=== PATIENT | male | born 1955 | race Caucasian/White ===

== ENCOUNTER → 2016-05-14 | Outpatient (CLI) | payer BC ==
[~2016-05-14] MED LIST: CITA20TA7 PO; DILT120C53 PO; DOXA4TAB2 PO; FISH1CAP15 PO; MAGN250T13 PO; MULT-974 PO; POTA8CAP9 PO
--- NOTE | 2016-05-17 08:22 | ECHOCARDIOGRAPHY REPORT ---
PROCEDURE PHYSICIAN: JUDY GALEANO DATE OF PROCEDURE: 05/14/2016 TWO DIMENSIONAL ECHOCARDIOGRAM REPORT PRIMARY PHYSICIAN: Dr. Moran OTHER PHYSICIAN: REFERRING PHYSICIAN: ORDERING PHYSICIAN: Dr. Galeano INDICATION FOR THE PROCEDURE: 1. Palpitations. 2. Wide complex tachycardia. 3. Hypertension. MEASUREMENTS DERIVED VALUES LV DIAMETER (LAX) NORMALS NORMALS Diastolic 4 (3.6-5.2) Eject. Fract. (60%+/-6%) Systolic (2.3-3.9) Diastolic Vol. % Shortening (0.22-0.42) Systolic Vol. Aortic Root 3 IVS THICKNESS Diastolic 0.9 (0.6-1.1) LVPW THICKNESS Diastolic 1 (0.6-1.1) LA DIAMETER Systolic 3.5 (2.1-3.7) DESCRIPTION: Two-dimensional echocardiography shows normal global left ventricular systolic function with normal regional wall motion. Aortic, mitral and tricuspid valve leaflets show good leaflet excursion. There is no significant pericardial effusion. Doppler imaging did not indicate significant valvular regurgitation or stenosis. Pulmonary artery systolic pressure could not be reliably estimated on this study. Inferior vena cava appears moderately dilated but does exhibit inspiratory collapse. There is no evidence of significant intracardiac shunt on this transthoracic echocardiographic study. CONCLUSIONS: 1. Normal global left ventricular systolic function with an ejection fraction of approximately 60%. 2. No evidence of significant valvular regurgitation or stenosis on this study. 3. Chamber sizes appear to be within normal limits. Job ID: [id number] Dictated Date: 05/16/2016 13:38:27 Batch Mixer Operator Date: 05/17/2016 08:17:19 / [email or web address]
== END ==
LOC: CARD 15:06
PROVIDERS: ATTEND Internal Medicine Cardiovascular Disease
DX: I47.2 Ventricular tachycardia (principal); N40.0 Benign prostatic hyperplasia without lower urinary tract symptoms; I10 Essential (primary) hypertension; Z72.0 Tobacco use
CPT/HCPCS: 93306

== ENCOUNTER 2016-05-18 09:07 | Day surgery (SDC) | payer BC ==
[2016-05-18] VITALS (9 sets, daily range): BP systolic 102–143; BP diastolic 64–88
[~2016-05-18] VITALS: Ht 177.8 cm; Wt 79.8 kg
[2016-05-18] MEDS ORDERED: HEParin (CATH LAB) 2,000 ML IV ONE (09:31)
[2016-05-18] MEDS ORDERED: NS IV 1000 ML 1,000 ML ONE (09:31)
[2016-05-18] MEDS ORDERED: LIDOCAINE 1% INJ 20 ML (XYLOCAINE) VIAL ONE (09:31)
[2016-05-18] MEDS ORDERED: NS IV 1000 ML 1,000 ML IV SCH ×3 (09:51→11:43)
[2016-05-18 09:59] LABS: MEAN PLATELET VOLUME 9.8 FL (7.4-10.4); RED BLOOD COUNT 4.78 10^6/uL (4.35-5.85); RED CELL DISTRIBUTION WIDTH 12.6 % (10.0-14.5); WHITE BLOOD COUNT 8.5 10^3/uL (4.3-11.0)
[2016-05-18 10:12] LABS: PROTHROMBIN TIME PATIENT 13.3 SEC (12.2-14.7)
[2016-05-18 10:16] LABS: ALANINE AMINOTRANSFERASE 28 U/L (0-55); ALBUMIN 4.8 G/DL (3.2-4.5); ANION GAP 11 MMOL/L (5-14); ASPARTATE AMINO TRANSFERASE 26 U/L (5-34); BILIRUBIN,TOTAL 0.5 MG/DL (0.1-1.0); BLOOD UREA NITROGEN 17 MG/DL (7-18); BUN/CREATININE RATIO 16; CALCIUM 9.5 MG/DL (8.5-10.1); CARBON DIOXIDE 23 MMOL/L (21-32); CHLORIDE 107 MMOL/L (98-107); CHOLESTEROL 158 MG/DL (< 200); CREATININE SERUM 1.05 MG/DL (0.60-1.30); DIRECT LDL 98 MG/DL (1-129); GFR ESTIMATED > 60; GLUCOSE 104 MG/DL (70-105); POTASSIUM 4.3 MMOL/L (3.6-5.0); SODIUM 141 MMOL/L (135-145); TOTAL PROTEIN 7.7 G/DL (6.4-8.2); TRIGLYCERIDES 83 MG/DL (<150); VLDL CHOLESTEROL 17 MG/DL (5-40)
[2016-05-18] MEDS ORDERED: MULT-974 PO (10:34)
[2016-05-18] MEDS ORDERED: MAGN250T13 PO (10:35)
[2016-05-18] MEDS ORDERED: POTA8CAP9 PO (10:36)
[2016-05-18] MEDS ORDERED: FISH1CAP15 PO (10:37)
[2016-05-18] MEDS ORDERED: DOXA4TAB2 PO (10:38)
[2016-05-18] MEDS ORDERED: CITA20TA7 PO (10:39)
[2016-05-18] MEDS ORDERED: DILT120C53 PO (10:39)
[2016-05-18] MEDS ORDERED: MIDAZOLAM 5 MG/5 ML (VERSED) VIAL ONE (10:51)
[2016-05-18] MEDS ORDERED: diphenhydrAMINE 50 MG/ML INJ (BENADRYL) ONE (10:51)
[2016-05-18] MEDS ORDERED: fentaNYL INJECTION 100 MCG/2 ML AMP ONE (10:51)
[2016-05-18] MEDS ORDERED: FLU TRIvalent (5 YOA+) 2016-17 (AFLURIA) 0.5 ML IM ONE (11:00)
--- NOTE | 2016-05-18 11:43 | Cardiac Procedure Note-CS/ASA ---
Pre-Procedure Note Pre-Op Procedure Note H&P Reviewed The H&P was reviewed, patient examined and no changes noted. Date H&P Reviewed: May 18, 2016 Time H&P Reviewed: 11:20 Conscious Sedation Pre-Proced Time Reviewed: 11:20 ASA Class: 2 Airway Mallampati Classification: (yocha dehe appropriate class) I. II. III, IV Lungs Heart ASA score ASA 1: a normal healthy patient ASA 2: a patient with a mild systemic disease (mid diabetes, controlled hypertension, obesity ASA 3: a patient with a severe systemic disease that limits activity (angina , COPD, prior Myocardial infarction) ASA 4: a patient with an incapacitating disease that is a constant threat to life (CHF, renal failure) ASA 5: a moribund patient not expected to survive 24 hrs. (ruptured aneurysm) ASA 6: a declared brain patient whose organs are being harvested. For emergent operations, add the letter E after the classification Grade 2 Sedation Plan: Analgesia, Amnesia, Plan communicated to team members, Discussed options with patient/fam, Discussed risks with patient/fam Note The patient is an appropriate candidate to undergo the planned procedure, sedation, and anesthesia. The patient immediately re-assessed prior to indication. JUDY PELLETIER MD FACP FAC [facility]S May 18, 2016 11:43
[2016-05-18] MEDS ORDERED: PATIENT MAY USE OWN MEDS, ALL PO SCH (11:45)
--- NOTE | 2016-05-18 11:46 | Discharge Inst-Post CATH ---
Discharge Inst-CATH Post Cardiac Cath D/C Inst Follow Up/Plan Follow up with Dr Galeano in 1-2 weeks CARDIAC CATH DISCHARGE INSTRUCTIONS *Hold Metformin for 48 hours post heart cath. ACTIVITY * Go Home directly and rest. * Limit activity of the leg (or wrist if it was used) for 7 days including aerobics, swimming, jogging, bicycling, etc. * Restrict stair-climbing for 7 days if possible, if not, climb up with your non -cath leg, then bring together on the same step. * Avoid lifting, pushing, pulling or excessive movement of the affected extremity for 7 days. * Customary sexual activity may be resumed after 2 days-use caution not to use a position that strains or causes pain to the affected extremity. * No driving for 24 hours. * NO SMOKING. * Avoid straining for bowel movements for 7 days. * Gentle walking on level ground is allowed. * Returning to work will depend on the type of procedure and the results. Your doctor will discuss this with you. CALL YOUR DOCTOR FOR ANY OF THE FOLLOWING: *If bleeding from the puncture site occurs- Apply gentle pressure to site with clean cloth and call your doctor or EMS. * If a knot or lump forms under the skin, increases in size, or causes pain. * If bruising appears to be worsening or moving further down your leg instead of disappearing. * Temperature above 101 F. CARE OF YOUR GROIN INCISION; * Bruising or purple discoloration of the skin near the puncture site is common. * You may shower only, no bathtub bathing for 5 days. Be careful to avoid slipping as your leg may feel stiff. * If a closure device was used on your femoral artery, please see the attached guide regarding care of the device and your leg. * REMOVE the dressing from your groin the next day after your procedure in the shower. CARE OF YOUR WRIST INCISION; * Bruising or purple discoloration of the skin near the puncture site is common. * You may shower. * DO NOT submerge wrist. * Remove dressing in 24 hours. JUDY GALEANO MD [facility]S May 18, 2016 11:46
--- NOTE | 2016-05-18 11:46 | Discharge Inst-Cardiology ---
Discharge Inst-Cardiac Discharge Medications Continued Medications: Citalopram Hydrobromide (Citalopram HBr) 20 Mg Tablet 20 MG PO DAILY TAB Diltiazem HCl (Cartia Xt) 120 Mg Cap.er.24h 120 MG PO DAILY CAP Doxazosin Mesylate (Doxazosin Mesylate) 4 Mg Tablet 4 MG PO HS TAB Fish Oil/Dha/Epa (Fish Oil 1,200 mg Fish Oil) 1 Each Capsule 1 EACH PO DAILY CAP Magnesium Oxide (Magnesium) 250 Mg Tablet 250 MG PO DAILY TAB Multivitamin (Multi-Vitamin Daily) 1 Each Tablet 1 EACH PO DAILY TAB Potassium Chloride (Potassium Chloride) 8 Meq Capsule.er 8 MEQ PO DAILY CAP JUDY PELLETIER MD FACP FAC [facility]S May 18, 2016 11:46
--- NOTE | 2016-05-19 11:27 | CARDIAC CATHETERIZATION ---
PROCEDURE PHYSICIAN: JUDY PELLETIER DATE OF PROCEDURE: 05/18/2016 Jasper Rodriguez is a 60-year-old gentleman who had a Holter monitor study and Dr. Moran's office for palpitations. This was reported as having shown an episode of wide complex, nonsustained, tachycardia. Cardiac catheterization was recommended to evaluate for coronary artery disease as the basis of what wide-complex or ventricular tachycardia. An informed consent was obtained. PROCEDURE: He was brought to the cardiac catheterization laboratory in a fasting state. The right groin was prepared in usual sterile fashion. 1% lidocaine was used for local anesthesia. Modified Seldinger technique was used to advance a 5-Monegasque sheath in right femoral artery. 5-Monegasque JL4 catheters was used for left coronary angiography. 5-Monegasque JR4 catheter was used for right coronary angiography. A 5-Monegasque pigtail catheter was used for left heart catheterization, left ventricular angiography. The pigtail was pulled back to the aortic root and the aortic root angiography was performed. This was done to make sure that he did not have any anomalous coronaries because the left circumflex artery was very small. The pigtail catheter was removed. Angiography of the right femoral artery was carried out through the sheath. Mynx was used to achieve hemostasis. He tolerated the procedure well. HEMODYNAMICS: Left ventricular end diastolic pressure following coronary angiography was 14 mmHg. There is no significant pressure gradient on pullback across the aortic valve. Ascending aortic pressure was 115/67 with a mean of 80 mmHg. LEFT VENTRICULAR ANGIOGRAPHY: Left ventricular angiography was carried out in the right anterior oblique projection. Global left ventricular systolic function was normal, no regional wall motion abnormalities are seen. Left ventricular ejection fraction of approximately 55%. There does not appear to be significant mitral regurgitation. CORONARY ANGIOGRAPHY: The left main coronary artery, left circumflex artery, right coronary artery are all free of any angiographically significant disease. Right coronary artery is dominant. CONCLUSIONS: 1. No angiographically significant coronary artery disease. 2. Normal global left ventricular systolic function with an ejection fraction of 55%. 3. No significant mitral regurgitation. DISCUSSION AND RECOMMENDATIONS: Based on this study, arrhythmia does not appear to be originating from any coronary disease or cardiomyopathy. Outpatient follow-up is advised. Job ID: [id number] Dictated Date: 05/18/2016 11:37:51 Gear Shaver Set Up Operator Date: 05/19/2016 11:19:25 / [email or web address]
== END 2016-05-18 15:00 | disposition home or self-care (01) ==
LOC: CATH 09:07 → SURG 11:45 → CATH 15:00
PROVIDERS: ATTEND Nurse Practitioner Family
DX: R00.0 Tachycardia, unspecified (principal); R00.2 Palpitations; I10 Essential (primary) hypertension; Z72.0 Tobacco use; Z82.49 Family history of ischemic heart disease and other diseases of the circulatory system; Z79.899 Other long term (current) drug therapy
CPT/HCPCS: 36415; 80053; 80061; 85027; 85610; 87081; 93005; 93458

== ENCOUNTER → 2016-07-07 | Outpatient (CLI) | payer BC ==
[2016-07-07 10:02] LABS: ANION GAP 8 MMOL/L (5-14); BLOOD UREA NITROGEN 10 MG/DL (7-18); BUN/CREATININE RATIO 10; CALCIUM 9.2 MG/DL (8.5-10.1); CARBON DIOXIDE 25 MMOL/L (21-32); CHLORIDE 105 MMOL/L (98-107); CREATININE SERUM 1.03 MG/DL (0.60-1.30); GFR ESTIMATED > 60; GLUCOSE 104 MG/DL (70-105); SODIUM 138 MMOL/L (135-145)
[2016-07-07 10:23] LABS: THYROID STIMULATING HORMONE 1.59 UIU/ML (0.35-4.94)
== END ==
LOC: LAB 08:14
PROVIDERS: ATTEND Nurse Practitioner Family
DX: R00.2 Palpitations (principal); I10 Essential (primary) hypertension; I47.2 Ventricular tachycardia; Z72.0 Tobacco use
CPT/HCPCS: 36415; 80048; 84443